=== PATIENT | female | born 1995 | race Caucasian/White ===

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

== ENCOUNTER 2017-11-10 11:08 | Observation (INO) | payer OTHER ==
[2016-12-15 18:04] VITALS: O2SAT 100
[2017-11-10] MEDS ORDERED: MEPIVACAINE HCL 1% MPF 30 ML SOL INFIL PRN (14:05)
[2017-11-10] MEDS ORDERED: CARBOPROST 250 MCG/ML SOL IM PRN (14:05)
[2017-11-10] MEDS ORDERED: FENTANYL 100MCG/2ML SOL IV PRN (14:05)
[2017-11-10] MEDS ORDERED: SODIUM CHLORIDE 0.9% FLUSH 10 ML SOL IV PRN (14:05)
[2017-11-10] MEDS ORDERED: LACTATED RINGERS 1,000 ML IV PRN (14:05)
[2017-11-10] MEDS ORDERED: METHYLERGONOVINE MALEATE 0.2 MG/ML SOL IM PRN (14:05)
[2017-11-10] MEDS ORDERED: OXYTOCIN 10000 MU/ML SOL IM PRN (14:05)
[2017-11-10] MEDS ORDERED: SODIUM CHLORIDE 0.9% FLUSH 10 ML SOL IV SCH (14:15)
[2017-11-10 15:54] VITALS: BP 123/76; PULSE 94; RESP 20; TEMP 97.2
== END 2017-11-10 17:30 | disposition home or self-care (01) | DRG 951 ==
LOC: OB 11:08
PROVIDERS: ADMIT Family Medicine; ATTEND Family Medicine
DX: Z34.93 Encounter for supervision of normal pregnancy, unspecified, third trimester (principal); Z3A.40 40 weeks gestation of pregnancy
CPT/HCPCS: 59025

== ENCOUNTER 2017-11-11 22:30 | Inpatient (IN) | payer OTHER ==
[2017-11-11] MEDS ORDERED: FENTANYL 100MCG/2ML SOL IV PRN (22:47)
[2017-11-11] MEDS ORDERED: MEPIVACAINE HCL 1% MPF 30 ML/VIAL SOL INFIL PRN (22:47)
[2017-11-11] MEDS ORDERED: CARBOPROST 250 MCG/ML SOL IM PRN (22:47)
[2017-11-11] MEDS ORDERED: METHYLERGONOVINE MALEATE 0.2 MG/ML SOL IM PRN (22:47)
[2017-11-11] MEDS ORDERED: LACTATED RINGERS 1,000 ML IV PRN (22:47)
[2017-11-11] MEDS ORDERED: OXYTOCIN 10000 MU/ML SOL IM PRN (22:47)
[2017-11-11] MEDS ORDERED: SODIUM CHLORIDE 0.9% FLUSH 10 ML SOL IV PRN (22:47)
[2017-11-12] MEDS: SODIUM CHLORIDE 0.9% FLUSH 10 ML SOL IV SCH ×2 (08:07→14:53)
[2017-11-12] MEDS: LACTATED RINGERS 1,000 ML IV SCH ×2 (22:50→23:05)
[2017-11-12] MEDS ORDERED: NALOXONE HYDROCHLORIDE 0.4 MG/ML SOL IV PRN (22:55)
[2017-11-12] MEDS ORDERED: DIPHENHYDRAMINE 50 MG/ML SOL IV PRN (22:55)
[2017-11-12] MEDS ORDERED: NALBUPHINE HCL 20 MG/ML SOL IV PRN (22:55)
[2017-11-12] MEDS ORDERED: EPHEDRINE SULFATE 50 MG/ML SOL IV PRN (22:55)
[2017-11-12] MEDS ORDERED: FENTANYL 250 MCG/ 5ML SOL ONE (23:00)
[2017-11-12] MEDS ORDERED: LACTATED RINGERS 1,000 ML IV SCH (23:00)
[2017-11-12] MEDS ORDERED: ROPIVACAINE HYDROCHLORIDE 5 MG/ML SOL ONE (23:01)
[2017-11-12] MEDS ORDERED: LIDOCAINE HCL 2% MPF 10 ML SOL ONE (23:01)
[2017-11-13] MEDS ORDERED: BISACODYL 10 MG SUP PR PRN (02:16)
[2017-11-13] MEDS ORDERED: APAP/HYDROCODONE 325/5 TAB PO PRN (02:16)
[2017-11-13] MEDS ORDERED: WITCH HAZEL 1 EA PAD TOP PRN (02:16)
[2017-11-13] MEDS ORDERED: IBUPROFEN 600 MG TAB PO PRN (02:16)
[2017-11-13] MEDS ORDERED: METHYLERGONOVINE MALEATE 0.2 MG TAB PO PRN (02:16)
[2017-11-13] MEDS ORDERED: TEMAZEPAM 15MG 15 MG CAP PO PRN (02:16)
[2017-11-13] MEDS ORDERED: BENZOCAINE/MENTHOL 1 SPR TOP PRN (02:16)
[2017-11-13] MEDS ORDERED: FLEET ENEMA PR PRN (02:16)
[2017-11-13] MEDS: SODIUM CHLORIDE 0.9% FLUSH 10 ML SOL IV SCH ×2 (02:55→09:44)
[2017-11-13] MEDS: FOLIC ACID 1 MG TAB PO SCH (09:43)
[2017-11-13] MEDS: MULTIVITAMIN2 1 EA TAB PO SCH (09:43)
[2017-11-13] MEDS: DOCUSATE SODIUM 100 MG SGL PO SCH ×2 (09:44→21:24)
[2017-11-14] MEDS: MULTIVITAMIN2 1 EA TAB PO SCH (10:42)
[2017-11-14] MEDS: FOLIC ACID 1 MG TAB PO SCH (10:42)
[2017-11-14] MEDS: DOCUSATE SODIUM 100 MG SGL PO SCH ×2 (10:43→22:00)
[2017-11-14 10:57] VITALS: RESP 18
[2017-11-15 09:34] VITALS: BP 133/69; PULSE 94; TEMP 97.8; O2SAT 99
[2017-11-15] MEDS: DOCUSATE SODIUM 100 MG SGL PO SCH (12:02)
[2017-11-15] MEDS: MULTIVITAMIN2 1 EA TAB PO SCH (12:02)
[2017-11-15] MEDS: FOLIC ACID 1 MG TAB PO SCH (12:02)
== END 2017-11-15 10:25 | disposition home or self-care (01) | DRG 775 ==
LOC: OBSVTOIN 22:30 → OB 22:30
PROVIDERS: ADMIT Family Medicine; ATTEND Family Medicine
PROC: 10907ZC Drainage of Amniotic Fluid, Therapeutic from Products of Conception, Via Natural or Artificial Opening (ICD-10-PCS; 2017-11-12)
PROC: 10E0XZZ Delivery of Products of Conception, External Approach (ICD-10-PCS; principal; 2017-11-13)
PROC: 0HQ9XZZ Repair Perineum Skin, External Approach (ICD-10-PCS; 2017-11-13)
DX: O80 Encounter for full-term uncomplicated delivery (principal); Z37.0 Single live birth
CPT/HCPCS: 36415; 59025; 85018; J0670; J2590; J2795; J3010; A9270-GY

== ENCOUNTER 2018-11-27 11:58 | Observation (INO) | payer OTHER ==
[2017-11-15 09:34] VITALS: O2SAT 99
[2018-11-27 12:28] VITALS: RESP 16; TEMP 97.4
[2018-11-27 16:35] VITALS: BP 139/84; PULSE 116
== END 2018-11-27 16:30 | disposition home or self-care (01) | DRG 833 ==
LOC: OB 11:58
PROVIDERS: ADMIT Family Medicine; ATTEND Family Medicine
DX: O47.1 False labor at or after 37 completed weeks of gestation (principal); Z3A.39 39 weeks gestation of pregnancy
CPT/HCPCS: 59025

== ENCOUNTER 2018-11-28 00:06 | Observation (INO) | payer OTHER ==
[2017-11-15 09:34] VITALS: O2SAT 99
[2018-11-28] MEDS ORDERED: FENTANYL 100MCG/2ML SOL IV PRN (00:13)
[2018-11-28] MEDS ORDERED: MEPIVACAINE HCL 1% MPF 30 ML/VIAL SOL INFIL PRN (00:13)
[2018-11-28] MEDS ORDERED: CARBOPROST 250 MCG/ML SOL IM PRN (00:13)
[2018-11-28] MEDS ORDERED: OXYTOCIN 10000 MU/ML SOL IM PRN (00:13)
[2018-11-28] MEDS ORDERED: METHYLERGONOVINE MALEATE 0.2 MG/ML SOL IM PRN (00:13)
[2018-11-28] MEDS ORDERED: SODIUM CHLORIDE 0.9% FLUSH 10 ML SOL IV PRN (00:13)
[2018-11-28] MEDS ORDERED: LACTATED RINGERS 1,000 ML IV PRN (00:13)
[2018-11-28] MEDS ORDERED: SODIUM CHLORIDE 0.9% FLUSH 10 ML SOL IV SCH (00:15)
[2018-11-28 00:22] VITALS: RESP 20
[2018-11-28] MEDS ORDERED: ACETAMINOPHEN 500 MG 500 MG TAB PO PRN (01:41)
[2018-11-28] MEDS ORDERED: DIPHENHYDRAMINE 25 MG CAP PO ONE (02:00)
[2018-11-28] MEDS ORDERED: ACETAMINOPHEN 500 MG 500 MG TAB ONE (02:10)
[2018-11-28] MEDS ORDERED: DIPHENHYDRAMINE 25 MG CAP ONE (02:11)
[2018-11-28 06:47] VITALS: BP 133/85; PULSE 82; TEMP 97.1
== END 2018-11-28 08:10 | disposition home or self-care (01) | DRG 833 ==
LOC: OB 00:06
PROVIDERS: ADMIT Family Medicine; ATTEND Family Medicine
DX: O47.03 False labor before 37 completed weeks of gestation, third trimester (principal)
CPT/HCPCS: 59025; A9270-GY

== ENCOUNTER 2018-11-30 23:18 | Inpatient (IN) | payer OTHER ==
[2018-11-30] MEDS ORDERED: LACTATED RINGERS 1,000 ML IV PRN (23:20)
[2018-11-30] MEDS ORDERED: MEPIVACAINE HCL 1% MPF 30 ML/VIAL SOL INFIL PRN (23:20)
[2018-11-30] MEDS ORDERED: METHYLERGONOVINE MALEATE 0.2 MG/ML SOL IM PRN (23:20)
[2018-11-30] MEDS ORDERED: CARBOPROST 250 MCG/ML SOL IM PRN (23:20)
[2018-11-30] MEDS ORDERED: SODIUM CHLORIDE 0.9% FLUSH 10 ML SOL IV PRN (23:20)
[2018-11-30] MEDS ORDERED: OXYTOCIN 10000 MU/ML SOL IM PRN (23:20)
[2018-11-30] MEDS ORDERED: FENTANYL 100MCG/2ML SOL IV PRN (23:20)
[2018-11-30] MEDS ORDERED: DIPHENHYDRAMINE 50 MG/ML SOL IV PRN (23:25)
[2018-11-30] MEDS ORDERED: NALOXONE HYDROCHLORIDE 0.4 MG/ML SOL IV PRN (23:25)
[2018-11-30] MEDS ORDERED: NALBUPHINE HCL 20 MG/ML SOL IV PRN (23:25)
[2018-11-30] MEDS ORDERED: EPHEDRINE SULFATE 50 MG/ML SOL IV PRN (23:25)
[2018-11-30] MEDS ORDERED: LACTATED RINGERS 1,000 ML IV SCH (23:30)
[2018-11-30 23:44] LABS: BASOPHILS % (AUTO) 1 % (0-3); EOSINOPHILS % (AUTO) 1 % (0-9); HEMATOCRIT 34 % (35-47); HEMOGLOBIN 11.7 gm/dl (12.0-15.5); LYMPHOCYTES % (AUTO) 20.9 % (10-50); MEAN CORPUSCULAR HEMOGLOBIN 32.5 pg (27.0-32.0); MEAN CORPUSCULAR HGB CONC 34.2 gm/dl (32.0-36.0); MEAN CORPUSCULAR VOLUME 95 fL (81-99); MONOCYTES % (AUTO) 6.1 % (0-12); NEUTROPHILS % (AUTO) 71.4 % (37-80)
[2018-11-30] MEDS: SODIUM CHLORIDE 0.9% FLUSH 10 ML SOL IV SCH (23:54)
[2018-11-30] MEDS: LACTATED RINGERS 1,000 ML IV SCH (23:54)
[2018-12-01] MEDS: LACTATED RINGERS 1,000 ML IV SCH (00:13)
[2018-12-01] MEDS ORDERED: MORPHINE SULFATE 0.5 MG/ML SOL ONE (00:46)
[2018-12-01] MEDS ORDERED: WITCH HAZEL 1 EA PAD TOP PRN (01:52)
[2018-12-01] MEDS ORDERED: IBUPROFEN 600 MG TAB PO PRN (01:52)
[2018-12-01] MEDS ORDERED: METHYLERGONOVINE MALEATE 0.2 MG TAB PO PRN (01:52)
[2018-12-01] MEDS ORDERED: TEMAZEPAM 15MG 15 MG CAP PO PRN (01:52)
[2018-12-01] MEDS ORDERED: BISACODYL 10 MG SUP PR PRN (01:52)
[2018-12-01] MEDS ORDERED: FLEET ENEMA PR PRN (01:52)
[2018-12-01] MEDS ORDERED: BENZOCAINE/MENTHOL 1 SPR TOP PRN (01:52)
[2018-12-01] MEDS ORDERED: APAP/HYDROCODONE 1 EACH TABLET PO PRN (01:52)
[2018-12-01] MEDS: SODIUM CHLORIDE 0.9% FLUSH 10 ML SOL IV SCH ×3 (08:15→23:29)
[2018-12-01] MEDS: DOCUSATE SODIUM 100 MG SGL PO SCH ×2 (08:49→20:41)
[2018-12-01] MEDS ORDERED: DIPHENHYDRAMINE 25 MG CAP ONE (20:39)
[2018-12-01] MEDS ORDERED: DIPHENHYDRAMINE 25 MG CAP PO PRN (20:40)
[2018-12-02] MEDS: DOCUSATE SODIUM 100 MG SGL PO SCH ×2 (08:19→22:14)
[2018-12-02 23:51] VITALS: PULSE 88
[2018-12-03 08:07] VITALS: BP 141/92; RESP 18; TEMP 97.9; O2SAT 100
[2018-12-03] MEDS: DOCUSATE SODIUM 100 MG SGL PO SCH (08:50)
== END 2018-12-03 10:20 | disposition home or self-care (01) | DRG 807 ==
LOC: OBSVTOIN 23:18 → OB 23:18
PROVIDERS: ADMIT Family Medicine; ATTEND Family Medicine
PROC: 10907ZC Drainage of Amniotic Fluid, Therapeutic from Products of Conception, Via Natural or Artificial Opening (ICD-10-PCS; 2018-11-30)
PROC: 10E0XZZ Delivery of Products of Conception, External Approach (ICD-10-PCS; principal; 2018-12-01)
PROC: 6A550ZT Pheresis of Cord Blood Stem Cells, Single (ICD-10-PCS; 2018-12-01)
DX: O80 Encounter for full-term uncomplicated delivery (principal); Z37.0 Single live birth; Z3A.39 39 weeks gestation of pregnancy
CPT/HCPCS: 36415; 85018; 85025; J0670; J2274; J2590; J3010; A9270-GY